=== PATIENT | female | born 1945 | race Two or more races ===

== ENCOUNTER 2019-05-09 08:07 | Emergency (ER) | payer OTHER ==
[~2019-05-09] VITALS: Ht 152.4 cm; Wt 69.4 kg
[2019-05-09] MEDS ORDERED: CARDIZEM CD180 M1 (08:48)
[2019-05-09] MEDS ORDERED: PREDNISOLONE SO10 MG (08:48)
[2019-05-09] MEDS ORDERED: SINGULAIR 10MG10 MG (08:49)
== END 2019-05-09 22:19 | disposition home or self-care (01) ==
LOC: ER 08:07
DX: J45.998 Other asthma (principal); B96.0 Mycoplasma pneumoniae [M. pneumoniae] as the cause of diseases classified elsewhere

== ENCOUNTER 2019-07-11 08:41 | Emergency (ER) | payer OTHER ==
[~2019-07-11] VITALS: Ht 152.4 cm; Wt 70.3 kg
[~2019-07-11 08:41] MED LIST: CARDIZEM CD180 M1; PREDNISOLONE SO10 MG; SINGULAIR 10MG10 MG
[2019-07-11] MEDS ORDERED: ATROVENT HFA12.9 GM IH (08:50)
[2019-07-11] MEDS ORDERED: SINGULAIR4 MG PO (08:51)
== END 2019-07-11 13:41 | disposition home or self-care (01) ==
LOC: ER 08:41
DX: J45.998 Other asthma (principal); B96.0 Mycoplasma pneumoniae [M. pneumoniae] as the cause of diseases classified elsewhere

== ENCOUNTER 2019-07-19 05:30 | Inpatient (IN) | payer OTHER ==
[~2019-07-19] VITALS: Ht 154.9 cm; Wt 71.7 kg
[~2019-07-19 05:30] MED LIST changes: +ATROVENT HFA12.9 GM IH; +SINGULAIR4 MG PO
[2019-07-24] MEDS ORDERED: DILTIAZEM 24HR180 MG PO (11:45)
[2019-07-24] MEDS ORDERED: INTESTINEX680 M1 PO (11:46)
[2019-07-24] MEDS ORDERED: MONTELUKAST SOD10 MG PO (11:46)
== END 2019-07-24 13:28 | disposition home or self-care (01) | DRG 203 ==
LOC: ER 05:30 → SURH 17:09
PROVIDERS: ADMIT Internal Medicine
PROC: 3E0F7GC Introduction of Other Therapeutic Substance into Respiratory Tract, Via Natural or Artificial Opening (ICD-10-PCS; 2019-07-19)
PROC: CB2YYZZ Tomographic (Tomo) Nuclear Medicine Imaging of Respiratory System using Other Radionuclide (ICD-10-PCS; 2019-07-20)
PROC: 8E0ZXY6 Isolation (ICD-10-PCS; principal; 2019-07-21)
DX: J45.901 Unspecified asthma with (acute) exacerbation (principal)